=== PATIENT | male | born 2000 | race Caucasian/White ===

== ENCOUNTER 2020-05-12 20:43 | Emergency (ER) | payer OTHER, BC ==
[~2020-05-12] VITALS: Ht 177.8 cm; Wt 121.0 kg
[2020-05-12 20:45] VITALS: BP 128/83
[2020-05-12] MEDS ORDERED: AUGM875T28 PO (23:13)
[2020-05-12] MEDS ORDERED: TETANUS/DIPHTHERIA TOX ADSORB ADULT 0.5ML SYR/VIAL (90714) IM ONE (23:15)
[2020-05-12] MEDS ORDERED: BOOSTRIX/ADACEL VACCINE (DIPHTH/PERTUSS/ACELL/TETANUS) 0.5ML SYR IM ONE (23:30)
== END 2020-05-12 23:27 | disposition home or self-care (01) ==
LOC: M ED 20:43
DX: S40.872A Other superficial bite of left upper arm, initial encounter (principal); W50.3XXA Accidental bite by another person, initial encounter; Y92.89 Other specified places as the place of occurrence of the external cause; F17.210 Nicotine dependence, cigarettes, uncomplicated

== ENCOUNTER → 2021-02-14 | Outpatient (REF) | payer OTHER, BC ==
[~2021-02-14] MED LIST: AUGM875T28 PO
== END ==
LOC: M WUC 17:59
PROVIDERS: ATTEND Physician Assistant
DX: J02.9 Acute pharyngitis, unspecified (principal)

== ENCOUNTER → 2021-06-01 | Outpatient (REF) | payer OTHER | LOC: M LAB REF 21:31 | PROVIDERS: ATTEND Physician Assistant Medical | DX: R50.9 Fever, unspecified (principal) ==